=== PATIENT | female | born 1990 | race Caucasian/White ===

== ENCOUNTER 2018-11-03 17:36 | Emergency (ER) | payer OTHER ==
--- NOTE | 2018-11-03 18:41 | XRAY Report ---
Reason: injury Procedure Date: 11/03/2018 Accession Number: [id number] / [id number] Procedure: XR - Ankle 3 View LT CPT Code: FULL RESULT: EXAM: LEFT ANKLE RADIOGRAPHY EXAM DATE: 11/03/2018 06:20 PM. CLINICAL HISTORY: Injury. COMPARISON: None. TECHNIQUE: 3 views. FINDINGS: Bones: No acute fracture. No suspicious osseous lesion. Joints: No dislocation. No significant joint space narrowing. Soft Tissues: Lateral malleolus soft tissue swelling. IMPRESSION: No acute osseous abnormality. RADIA
--- NOTE | 2018-11-03 20:32 | ED Physician Documentation ---
History of Present Illness - Stated complaint Stated Complaint: L ANKLE PX - Chief complaint Chief Complaint: Ext Problem - History obtained from History obtained from: Patient - History of Present Illness Timing: Prior to arrival - Additonal information Additional information: Patient is a previously healthy 28-year-old female who accidentally slipped on the stairs and rolled her left ankle and has pain and swelling to the lateral malleoli. No other injuries. Patient has been able to limp but not fully bear weight because of discomfort. Patient also denies change in strength and range of motion because of swelling and pain, but no change in sensation. No other improving or worsening factors noted. Review of Systems Musculoskeletal: reports: Extremity pain, Joint pain, Extremity swelling, Joint swelling Neurologic: reports: Focal weakness. denies: Numbness PD PAST MEDICAL HISTORY - Past Medical History Past Medical History: No - Past Surgical History Past Surgical History: No - Allergies Allergies/Adverse Reactions: Allergies Allergy/AdvReac Type Severity Reaction Status Date / Time No Known Drug Allergies Allergy Verified 11/03/18 17:57 PD ED PE NORMAL - Vitals Vital signs reviewed: Yes - General General: Alert and oriented X 3, No acute distress, Well developed/nourished - HEENT HEENT: Atraumatic, Moist mucous membranes - Neck Neck: Supple, no meningeal sign - Cardiac Cardiac: Strong equal pulses - Respiratory Respiratory: No respiratory distress - Derm Derm: Normal color, Warm and dry, No rash - Extremities Extremities: No deformity. No: No tenderness to palpate (Moderate tenderness over left lateral malleoli and remainder of left lower extremity otherwise unremarkable from a bony aspect but significant swelling to left lateral malleoli as well with some reduced range of motion because of the swelling and pain. No change in sensation.) - Neuro Neuro: No sensory deficit. No: No motor deficit (see above) Results - Vitals Vitals: Vital Signs - 24 hr 11/03/18 17:55 Temperature 37.4 C Heart Rate 107 H Respiratory 20 Rate Blood Pressure 124/83 H O2 Saturation 97 Oxygen O2 Source Room air PD MEDICAL DECISION MAKING - ED course Complexity details: reviewed results, considered differential, d/w patient, d/w family ED course: Patient presenting with likely sprained ankle. Plain films obtained which not find evidence of dislocation, fracture, or other acute abnormality. Discussed results and recommendations with patient including William bandaging and offered crutches, which patient agreed to. Also discussed other supportive cares, return precautions, appropriate follow-up. Patient voiced understanding and is comfortable with discharge plan. Departure - Departure Disposition: 01 Home, Self Care Clinical Impression: Ankle sprain Condition: Good Instructions: ED Sprain Ankle Follow-Up: your,doctor [Other] - Within 3 Days Comments: May use crutches as needed. Recommend William bandaging to help reduce swelling and provide stability. Also recommend elevation, ice application, ibuprofen/Tylenol as needed. Please follow-up with primary care physician in next 2 to 3 days and return to ED sooner if experience worsening symptoms or have other concerns.
[2018-11-03 21:02] VITALS: BP 125/78
== END 2018-11-03 21:00 | disposition home or self-care (01) ==
LOC: ED 17:36
DX: S93.402A Sprain of unspecified ligament of left ankle, initial encounter (principal); X50.1XXA Overexertion from prolonged static or awkward postures, initial encounter; Y93.01 Activity, walking, marching and hiking
CPT/HCPCS: 99282; 99283

== ENCOUNTER 2018-12-02 15:09 | Outpatient (CLI) | payer OTHER ==
--- NOTE | 2018-12-03 16:03 | MRI Report ---
Reason: SPRAIN OF UNSPECIFIED LIGAMENT OF UNSPECIFIED ANKL Procedure Date: 12/02/2018 Accession Number: [id number] / [id number] Procedure: MRI - Ankle LT W/O CPT Code: FULL RESULT: EXAM: LEFT ANKLE/HINDFOOT MRI WITHOUT CONTRAST EXAM DATE: 12/02/2018 04:37 PM. CLINICAL HISTORY: Sprain of unspecified ligament of unspecified ankle. Lateral ankle pain. Fell down 3 steps. COMPARISON: ANKLE 3 VIEW LT 11/03/2018 6:02 PM. TECHNIQUE: Multiplanar, multisequence T1-weighted and fluid-sensitive sequences of the ankle/hindfoot without contrast. Other: None. FINDINGS: Bones and Articular Surfaces: Large ankle joint effusion. No talar dome osteochondral lesion. No acute fracture identified. Trace amount of marrow edema at the medial margin of the talus. Ankle mortise appears intact. Musculotendinous Structures: The Achilles tendon and plantar fascia appear intact. Visualized anterior, posterior and posterior lateral ankle tendons appear intact. Small volume of fluid associated with the tibialis posterior tendon, more than is typically visualized. Small volume of fluid associated with the peroneus longus tendon distal to the lateral malleolus. No significant muscle atrophy or fatty replacement. Ligaments: There is thickening and increased T2 signal involving the otherwise intact anterior talofibular ligament. The calcaneofibular ligament is ill-defined with increased signal but some fibers appear to remain intact on the coronal images. Deep and superficial fibers of the deltoid ligament appear intact. Normal signal at the tarsal sinus. The anterior and posterior distal tibiofibular ligaments appear intact. Miscellaneous: Lateral subcutaneous soft tissue edema. IMPRESSION: 1. Severe sprains and/or scarring involving the anterior talofibular and calcaneofibular ligaments. 2. Mild tibialis posterior tenosynovitis. 3. Minimal peroneus longus tenosynovitis. RADIA
== END 2018-12-02 15:10 | disposition home or self-care (01) ==
LOC: DI 15:09
PROVIDERS: ATTEND Registered Nurse Diabetes Educator
DX: S93.492A Sprain of other ligament of left ankle, initial encounter (principal); S93.412A Sprain of calcaneofibular ligament of left ankle, initial encounter; M65.872 Other synovitis and tenosynovitis, left ankle and foot

== ENCOUNTER 2020-08-12 05:06 | Emergency (ER) | payer OTHER ==
--- NOTE | 2020-08-12 05:07 | ED Physician Documentation ---
PD HPI HEENT - Stated complaint Stated Complaint: SORE THROAT - History obtained from History obtained from: Patient - History of Present Illness Timing - onset: Yesterday Timing - details: Gradual onset Pain level now: 3 Location: Throat Improves: Nothing Worsens: Swalllowing Associated symptoms: No: Fever (Tmax 99.0) Similar symptoms before: Has not had sx before Recently seen: Not recently seen Review of Systems Constitutional: denies: Fever, Chills, Sweats Ears: denies: Ear pain Nose: denies: Congestion Throat: reports: Sore throat Respiratory: denies: Dyspnea, Cough PD PAST MEDICAL HISTORY - Past Medical History Past Medical History: No - Past Surgical History Past Surgical History: No - Present Medications Home Medications: Ambulatory Orders Medication Instructions Recorded Confirmed No Known Home Medications 08/12/20 08/12/20 - Allergies Allergies/Adverse Reactions: Allergies Allergy/AdvReac Type Severity Reaction Status Date / Time No Known Drug Allergies Allergy Verified 08/12/20 05:16 - Social History Does the pt smoke?: No Smoking Status: Never smoker PD ED PE NORMAL - Vitals Vital signs reviewed: Yes - General General: Alert and oriented X 3, No acute distress, Well developed/nourished - HEENT HEENT: Moist mucous membranes, Other (mild posterior oropharyngeal erythema and mild swelling, symmetric and without exudate) - Neck Neck: Supple, no meningeal sign Results - Vitals Vitals: Vital Signs - 24 hr 08/12/20 08/12/20 08/12/20 05:14 05:30 06:08 Temperature 36.4 C L Heart Rate 101 H Respiratory 16 15 15 Rate Blood Pressure 131/77 H O2 Saturation 99 Oxygen O2 Source Room air - Labs Labs: Laboratory Tests 08/12/20 05:30 Group A Strep Rapid Negative PD MEDICAL DECISION MAKING - ED course Complexity details: reviewed results, re-evaluated patient, considered differential, d/w patient ED course: c/o sore throat since yesterday with Tmax 99.0. She has no other c/o. She had her second dose of COVID vaccine a few days ago; given that her sore throat is an isolated c/o, this is likely coincident and not a side effect of the vaccination. Rapid strep negative. Given 10mg PO decadron prior to d/c. Departure - Departure Disposition: Home, Self Care Clinical Impression: Pharyngitis Condition: Good Instructions: ED Pharyngitis Viral Report Pending Discharge Date/Time: 08/12/20 06:09
[2020-08-12 05:16] VITALS: BP 131/77
[2020-08-12 05:38] LABS: RAPID STREP SCREEN Negative (Negative)
[2020-08-12] MEDS ORDERED: DEXAMETHASONE 10 MG/ML VIAL PO STA (05:56)
[2020-08-12] MEDS ORDERED: CHERRY SYRUP 10 ML UDC PO ONE (05:56)
== END 2020-08-12 06:09 | disposition home or self-care (01) ==
LOC: ED 05:06
DX: J02.9 Acute pharyngitis, unspecified (principal)
CPT/HCPCS: 87070; 87430; 99283; A9270